=== PATIENT | male | born 1995 | race Caucasian/White ===

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

== ENCOUNTER 2017-01-27 03:37 | Emergency (ER) | payer BC ==
[~2017-01-27] VITALS: Ht 177.8 cm; Wt 75.0 kg
[~2017-01-27 03:37] MED LIST changes: +PRED20TA2 PO; +VORT10TA12 PO
[2017-01-27 03:42] VITALS: TEMP 37; Ht 177.8 cm; Wt 75.0 kg
[2017-01-27] MEDS ORDERED: LIDO/EPINEPHRINE/SOD BICARB 20 ML VIAL INFIL ONE (03:53)
[2017-01-27] MEDS ORDERED: CEPHALEXIN 500MG HOME PACK 1 EA BTL PO ONE (04:15)
[2017-01-27] MEDS ORDERED: CEPH500C2 PO (04:19)
--- NOTE | 2017-01-27 04:30 | EMERGENCY ROOM VISIT NOTE ---
ED Visit Note First contact with patient: 03:48 CHIEF COMPLAINT: Right thigh laceration HISTORY OF PRESENT ILLNESS: This 21 yo patient presents to the emergency department with friends after cutting the right thigh with a knife on accident when he is trying to cut his belt. The bleeding has not stopped. Denies weakness or numbness of the extremity. patient has full range of motion of the extremity The patient rates the pain as mild and 2/10. The patient denies any other injuries. The patient's tetanus shot is up to date. Patient states he's had some alcohol but does not feel overly intoxicated. REVIEW OF SYSTEMS: A 6 system review of systems was completed with positives and pertinent negatives listed in the HPI. ALLERGIES: Penicillin, reaction rash MEDICATIONS: Reviewed PMH: ADHD SOCIAL HISTORY: No drug use PHYSICAL EXAM: Vital Signs: Reviewed Nurse's notes, vital signs stable. GENERAL : Pleasant male, in no acute distress, well developed, well nourished. SKIN: There is a 5 cm long laceration on the right proximal thigh. The edges gape apart with traction. There is no foreign material in the wound and it looks clean. There is bleeding. At the base of the wound the tendon sheath is visualized and is superficially lacerated. No muscle involvement. No other deep structures such as bones, or significant blood vessels are seen in the base of the wound. Extension and flexion of the extremity is full and strong. Full range of motion of the extremity. Capillary refill less than 2 seconds. Normal sensation to light and sharp touch. EMERGENCY DEPARTMENT COURSE: I examined the patient. Using sterile technique the wound was cleansed with Betadine. 6 ml of 1% buffered lidocaine with epinephrine was used to anesthetize the patient. The area was sterilely draped. Once the patient was anesthetized, the wound was copiously irrigated under pressure with sterile saline. The wound was explored and the tendon sheath is visualized and is superficially lacerated, 2cm. No muscle involvement. No other deep structures such as bones, or significant blood vessels are seen in the base of the wound. . The laceration was repaired using 10 simple interrupted size 4 absorbable deep sutures to bring the wound together and 28 jorje . The patient tolerated the procedure well. Hemostasis was achieved. The area was cleaned with sterile saline and dressed with bacitracin ointment and bandage. Jhonny wrap was then applied for extra compression and neurovascular status is rechecked after placement and is intact. Patient was started on Keflex for the deep complex wound. The patient was discharged home in good condition. Differential diagnosis includes laceration, vascular injury and other etiologies were considered. Case reviewed with my attending. DIAGNOSIS: #1 right thigh complex laceration, initial encounter DISCHARGE INSTRUCTIONS & TREATMENT: as above Current/Historical Medications Scheduled Cephalexin Monohydrate (Keflex), 500 MG PO QID Vortioxetine HBr (Trintellix), 15 MG PO DAILY Scheduled PRN Lisdexamfetamine Dimesylate (Vyvanse), 20 MG PO DAILY PRN for ADHD Allergies Coded Allergies: Penicillins (Unverified Allergy, Intermediate, RASH, 12/31/16) Uncoded Allergies: PENICILLIN (Allergy, Mild, Rash, 03/03/16) Vital Signs Date Time Temp Pulse Resp B/P (MAP) Pulse Ox O2 Delivery O2 Flow Rate FiO2 01/27/17 03:42 37.0 94 18 139/71 97 Room Air Departure Information Impression Primary Impression: Laceration of right thigh Dispostion Home / Self-Care Condition GOOD Prescriptions Cephalexin Monohydrate (KEFLEX) 500 Mg Cap 500 MG PO QID for 6 Days, #24 CAP Prov: Niurka Polanco .JIN 01/27/17 Forms HOME CARE DOCUMENTATION FORM, IMPORTANT VISIT INFORMATION Patient Instructions My [facility], ED Laceration All Additional Instructions Keep wound clean and dry. Do not allow any crusting or dried blood to accumulate on sutures. If this occurs, use a 1:1 solution of hydrogen peroxide/ water on a Q-tip to clean the wound. Use an antibiotic ointment for 3-4 days, then let wound dry. Staple removal in 10-12 days. Return sooner for any signs of infection (increasing redness, swelling, drainage). Ice and elevate for swelling and pain. Keep covered when in sun until sutures removed then SPF 50 or higher for one year. Vitamin E oil if desired two weeks after suture removal for reduction of scar. Wear Jhonny wrap over bacitracin and bandage for extra compression until jorje are removed. Cephalexin(Keflex) 500mg: Take one pill four times daily for 7 days. All antibiotics can cause diarrhea. If this occurs and you feel worse or it does not resolve in 1-2 days follow up with your doctor or return to the Emergency Department as this could be signs of serious underlying problems. Any medication can cause an allergic reaction, stop the pills immediately and return to the ER for rash, hives, breathing difficulties, or swelling. Ibuprofen(Motrin, Advil) may be used for fever or pain. Use 600mg every six hours as needed. Take with food. Avoid using more than 2400mg in a 24 hour period. Do not use 2400mg per day for more than three consecutive days without physician direction. Prolonged inappropriate use can lead to stomach upset or ulcers. (AND/OR) Acetaminophen(Tylenol) may be used for fever or pain. Use 1000mg every six hours as needed. Avoid using more than 3000mg in a 24 hour period. Rest and drink plenty of fluids. Continue current medications. Return to the ER for severe pain, fevers, spreading redness, or any worsening of your condition. Follow up with health services in 10-12 days for staple removal.
[2017-01-27 04:31] VITALS: BP 136/78; PULSE 70; O2SAT 98
== END 2017-01-27 04:32 | disposition home or self-care (01) ==
LOC: C.EDB 03:39 → C.EDA 04:32
DX: S71.111A Laceration without foreign body, right thigh, initial encounter (principal); W26.0XXA Contact with knife, initial encounter; F90.9 Attention-deficit hyperactivity disorder, unspecified type; Z88.0 Allergy status to penicillin